=== PATIENT | female | born 1955 | race Caucasian/White ===

== ENCOUNTER 2024-11-08 11:11 | Emergency (ER) | payer MEDICARE ==
[2024-11-08] VITALS (144 sets, daily range): BP systolic 82–132; BP diastolic 48–79
[~2024-11-08] VITALS: Ht 165.1 cm; Wt 119.7 kg
[2024-11-08] MEDS ORDERED: NOREPINEPHRINE BITARTRATE 4 MG/VIAL SDV ONE ×2 (11:26→17:23)
[2024-11-08] MEDS ORDERED: amioDARONE HCl 150 MG/3 ML SDV IV ONE (11:32)
[2024-11-08] MEDS ORDERED: MIDAZOLAM HCL 2 MG/2 ML VIAL ONE (11:33)
[2024-11-08] MEDS ORDERED: Heparin SODIUM (Porcine) 500 ML IV ONE ×2 (11:33→16:55)
[2024-11-08 11:39] LABS: BASO% 0.2 % (0-3); HEMATOCRIT 45.4 % (37.0-47.0); HEMOGLOBIN 15.2 g/dl (12.0-16.0); IMMATURE GRANULOCYTES 1.4 % (0.0-5.0); LYMPH% 8.7 % (15-41); MEAN CELL VOLUME 83.5 fL CALC (80.0-100.0); MEAN CORPUSCULAR HGB 27.9 pG CALC (26.0-32.0); MEAN CORPUSCULAR HGB CONC 33.5 g/dL CAL (32.0-36.0); MONO% 11.9 % (2-13); NEUT# 5.11 thou/uL (2.00-7.15); NEUT% 77.8 % (42-76); RED BLOOD COUNT 5.44 mill/uL (4.20-5.60); RED CELL DISTRI WIDTH 14.7 % (11.5-15.5)
[2024-11-08 11:49] LABS: ALBUMIN 3.8 g/dL (3.2-5.0); BILIRUBIN, TOTAL 6.2 mg/dL (0.02-1.3); CREATININE 4.9 mg/dL (0.5-1.0); POTASSIUM 4.2 mmol/l (3.5-5.1); TOTAL PROTEIN 7.3 g/dL (6.3-8.2)
[2024-11-08] MEDS ORDERED: amioDARONE HCl 450 MG in SODIUM CHLORIDE 250 ML IV ONE (11:50)
[2024-11-08] MEDS ORDERED: SODIUM CHLORIDE 0.9% 250 ML IV PRN ×2 (11:50)
[2024-11-08 12:40] LABS: URINE BLOOD DIPSTICK Moderate (NEGATIVE); URINE COLOR Yellow; URINE GLUCOSE - DIPSTICK Negative (NEGATIVE); URINE KETONE Negative (NEGATIVE); URINE LEUK ESTERASE Negative (NEGATIVE); URINE PH 8.5 (4.5-8.0); URINE PROTEIN - DIPSTICK >=300 mg/dL (NEG-TRACE); URINE SPECIFIC GRAVITY 1.025
[2024-11-08 12:41] LABS: URINE BACTERIA MANY hpf; URINE EPITHELIAL CELLS MODERATE EPI/hpf (0-FEW); URINE MUCUS MANY hpf (NONE-FEW); URINE NITRITE - DIPSTICK Positive (Negative)
[2024-11-08] MEDS ORDERED: dilTIAZem HCL 50 MG/10 ML SDV IV ONE (13:05)
[2024-11-08] MEDS ORDERED: Heparin SODIUM (Porcine) 5,000 UNITS/ML SDV IV ONE (16:50)
== END 2024-11-08 18:41 ==
LOC: ED 11:11
PROVIDERS: Family Medicine
PROC: 0T9B70Z Drainage of Bladder with Drainage Device, Via Natural or Artificial Opening (ICD-10-PCS; principal; 2024-11-08)
PROC: 5A09357 Assistance with Respiratory Ventilation, Less than 24 Consecutive Hours, Continuous Positive Airway Pressure (ICD-10-PCS; 2024-11-08)
PROC: 5A2204Z Restoration of Cardiac Rhythm, Single (ICD-10-PCS; 2024-11-08)
DX: I21.4 Non-ST elevation (NSTEMI) myocardial infarction (principal); I48.91 Unspecified atrial fibrillation; I11.0 Hypertensive heart disease with heart failure; I50.9 Heart failure, unspecified; J44.89 Other specified chronic obstructive pulmonary disease; Z20.822 Contact with and (suspected) exposure to COVID-19
CPT/HCPCS: J0282; J0696; J1644